=== PATIENT | female | born 1945 | race American Indian/Alaskan Native ===

== ENCOUNTER 2017-01-10 09:53 | Emergency (ER) | payer MEDICARE ==
[2017-01-10] MEDS ORDERED: LIDOCAINE VISCOUS 2% PO ONE (14:01)
[2017-01-10] MEDS ORDERED: HYDROGEN PEROXIDE TP ONE (14:01)
--- NOTE | 2017-01-10 14:05 | Emergency Department Report ---
HPI - General Chief Complaint: Earache Time Seen by Provider: 01/10/17 14:00 - HPI HPI: Patient is a 71-year-old female presents to ED complaining of right ear feeling clogged up 2 days. Patient states she used earwax removal drop with no relief. Patient states she has some decreased hearing in the ear to feeling of it being clogged. She denies fevers chills nausea vomiting abdominal pain headache blurry vision or any other problems. ED Past Medical Hx - Past Medical History Hx Hypertension: Yes - Social History Smoking Status: Never Smoker Substance Use Type: None ED Review of Systems ROS: Stated complaint: RT EAR PAIN Other details as noted in HPI Constitutional: denies: chills, fever Eyes: denies: eye pain, eye discharge, vision change ENT: denies: ear pain, throat pain Respiratory: denies: cough, shortness of breath, wheezing Cardiovascular: denies: chest pain, palpitations Endocrine: no symptoms reported Gastrointestinal: denies: abdominal pain, nausea, diarrhea Genitourinary: denies: urgency, dysuria, discharge Musculoskeletal: denies: back pain, joint swelling, arthralgia Skin: denies: rash, lesions Neurological: denies: headache, weakness, paresthesias Psychiatric: denies: anxiety, depression Hematological/Lymphatic: denies: easy bleeding, easy bruising Physical Exam - Physical Exam Vital Signs: Vital Signs 01/10/17 10:17 Temperature 98.5 F Pulse Rate 69 Respiratory 18 Rate Blood Pressure 149/93 O2 Sat by Pulse 100 Oximetry Physical Exam: GENERAL: Alert and oriented x3, no apparent distress, Normal Gait, atraumatic. HEAD: Head is normocephalic and a-traumatic. EYES: Extra ocular muscles are intact. Pupils are equal, round, and reactive to light and accommodation. EARS: symetrical, atraumatic, non tender, left ear canal clear, Right ear moderate cerumen impaction, Right TM not Visualized. Left tympanic membrance non inflamed. gross auditory nml bilaterally. MOUTH:Mouth is well hydrated and without lesions. Tonsils nonerythematous or swollen, Uvula midline, Tongue not elevated. Mucous membranes are moist. Posterior pharynx clear, no exudate or lesions. Patent airways. LUNGS: Symetrical with respiration, No wheezing, no rales or crackles, CTAB. HEART: S1, S2 present, regular rate and rhythm without murmur, no rubs, no gallops. Non tender to palpation SKIN: Warm and dry, No lesions, No ulceration or induration present. ED Course Vital Signs 01/10/17 10:17 Temperature 98.5 F Pulse Rate 69 Respiratory 18 Rate Blood Pressure 149/93 O2 Sat by Pulse 100 Oximetry ED Medical Decision Making - Medical Decision Making 71-year-old female presents with right sermon ear impaction ED course: 2 mL of peroxide was applied and right ear as such and immediately ear was flushed with 100 mL of normal saline Sermon ear wax expelled from ear. Patient tolerated procedure well Ear exam after irrigation and tympanic membrane visualized nonerythematous nonbulging Discussed patient follow up with primary care physician and can use earwax drops twice a day for sermon infection prevention Signs are stable patient is in no acute distress Critical care attestation.: If time is entered above; I have spent that time in minutes in the direct care of this critically ill patient, excluding procedure time. ED Disposition Clinical Impression: Cerumen impaction Qualifiers: Laterality: right Qualified Code(s): H61.21 - Impacted cerumen, right ear Disposition: DC-01 TO HOME OR SELFCARE Is pt being admited?: No Does the pt Need Aspirin: No Condition: Stable Instructions: Carbamide Peroxide (Into the ear), Cerumen Impaction (ED) Referrals: PRIMARY CAREMD [Primary Care Provider] - 3-5 Days PETE SAMS MD [Referring] - 3-5 Days Forms: Accompanied Note Time of Disposition: 14:40
[2017-01-10 14:58] VITALS: BP 165/90
== END 2017-01-10 14:57 | disposition home or self-care (01) ==
LOC: ED 09:53
DX: H61.21 Impacted cerumen, right ear (principal); I10 Essential (primary) hypertension

== ENCOUNTER 2017-01-19 06:25 | Emergency (ER) | payer MEDICARE ==
[2017-01-19 06:41] VITALS: BP 144/90
--- NOTE | 2017-01-19 07:45 | Emergency Department Report ---
ED Allergic Reaction HPI - General Chief complaint: Allergic Reaction Stated complaint: THROAT SWELLING Time Seen by Provider: 01/19/17 07:31 Source: patient Mode of arrival: Ambulatory Limitations: No Limitations - History of Present Illness Initial Comments: Patient stated that she had an IV contrast CT scan yesterday. She is complaining OF SWELLING IN HER NECK ON BOTH SIDES DENIED ANY DIFFICULTY SWALLOWING OR DIFFICULTY BREATHING. NO OTHER COMPLAINTS. MD Complaint: allergic reaction -: Last night Symptoms: denies: facial swelling, lip swelling, difficulty swallowing, difficulty breathing, orolingual swelling, hoarseness, dizziness, nausea, vomiting Severity: mild Treatment Prior to Arrival: benadryl Previous Allergy History: none - Related Data Previous Rx's Medication Instructions Recorded Last Taken Type Famotidine [Pepcid] 40 mg PO QHS #5 tablet 01/19/17 Unknown Rx Prednisone [predniSONE 10 mg 10 mg PO .TAPER #1 tab.ds.pk 01/19/17 Unknown Rx (6-Day Pack, 21 Tabs)] diphenhydrAMINE [Benadryl CAP] 25 mg PO Q8HR PRN #20 capsule 01/19/17 Unknown Rx Allergies Allergy/AdvReac Type Severity Reaction Status Date / Time sulfur [From Sulfur-8] Allergy Severe Swelling Verified 01/10/17 10:16 Latex, Natural Rubber AdvReac Severe Swelling Verified 01/10/17 10:16 ED Review of Systems ROS: Stated complaint: THROAT SWELLING Other details as noted in HPI Comment: All other systems reviewed and negative Constitutional: denies: chills, fever ENT: denies: throat pain Respiratory: denies: cough, shortness of breath, SOB with exertion, stridor Cardiovascular: denies: chest pain, palpitations Gastrointestinal: denies: abdominal pain, nausea, vomiting Skin: denies: rash, change in color Neurological: denies: headache, numbness ED Past Medical Hx - Past Medical History Previous Medical History?: Yes Hx Hypertension: Yes Additional medical history: Back Degenerative disk - Surgical History Past Surgical History?: No - Social History Smoking Status: Never Smoker Substance Use Type: Marijuana - Medications Home Medications: Home Medications Medication Instructions Recorded Confirmed Last Taken Type Famotidine [Pepcid] 40 mg PO QHS #5 tablet 01/19/17 Unknown Rx Prednisone [predniSONE 10 mg 10 mg PO .TAPER #1 tab.ds.pk 01/19/17 Unknown Rx (6-Day Pack, 21 Tabs)] diphenhydrAMINE [Benadryl CAP] 25 mg PO Q8HR PRN #20 capsule 01/19/17 Unknown Rx ED Physical Exam - General Limitations: No Limitations General appearance: alert, in no apparent distress - Head Head exam: Present: atraumatic, normocephalic, normal inspection - Eye Eye exam: Present: normal appearance Pupils: Present: normal accommodation - ENT ENT exam: Present: normal exam, normal orophraynx, mucous membranes moist - Expanded ENT Exam Expanded Throat exam: Positive: normal inspection. Negative: tonsillar erythema, tonsillomegaly, tonsillar exudate, R peritonsillar mass, L peritonsillar mass - Neck Neck exam: Present: normal inspection, full ROM, other (mild neck swelling bilaterally). Absent: tenderness, meningismus, lymphadenopathy, thyromegaly - Respiratory Respiratory exam: Present: normal lung sounds bilaterally. Absent: respiratory distress, wheezes, rales, rhonchi, stridor, chest wall tenderness, accessory muscle use, decreased breath sounds, prolonged expiratory - Cardiovascular Cardiovascular Exam: Present: regular rate, normal rhythm, normal heart sounds - GI/Abdominal GI/Abdominal exam: Present: soft. Absent: tenderness, guarding, rebound - Extremities Exam Extremities exam: Present: normal inspection - Back Exam Back exam: Present: normal inspection - Neurological Exam Neurological exam: Present: alert, oriented X3, CN II-XII intact ED Course Vital Signs 01/19/17 06:36 Temperature 97.9 F Pulse Rate 97 H Respiratory 16 Rate Blood Pressure 144/90 [Right] O2 Sat by Pulse 98 Oximetry ED Medical Decision Making - Medical Decision Making Patient has a mild allergic reaction possibly to the dye from the IV contrast there is no evidence of angioedema nor throat swelling noted no swelling. No evidence of respiratory distress patient will be discharged home after his Solu- Medrol 125 mg and advised to follow-up with her primary care physician and to come to the ER if her symptoms get worse. Critical care attestation.: If time is entered above; I have spent that time in minutes in the direct care of this critically ill patient, excluding procedure time. ED Disposition Clinical Impression: Allergic reaction to contrast dye Disposition: DC-01 TO HOME OR SELFCARE Is pt being admited?: No Does the pt Need Aspirin: No Condition: Stable Instructions: Allergies (ED) Referrals: PRIMARY CARE, [Primary Care Provider] - 3-5 Days Time of Disposition: 07:50
== END 2017-01-19 08:24 | disposition home or self-care (01) ==
LOC: ED 06:25
DX: T50.8X5A Adverse effect of diagnostic agents, initial encounter (principal); Y92.9 Unspecified place or not applicable; I10 Essential (primary) hypertension; F12.10 Cannabis abuse, uncomplicated
CPT/HCPCS: 96372; 99281; J2930

== ENCOUNTER 2017-02-01 21:35 | Emergency (ER) | payer MEDICARE ==
[2017-02-01 23:40] LABS: Basophils % (Auto) 0.6 % (0.0-1.8); Eosinophils % (Auto) 0.5 % (0.0-4.3); Hematocrit 44.6 % (30.3-42.9); Hemoglobin 14.7 gm/dl (10.1-14.3); Mean Corpuscular HGB Conc 33 % (30-34); Mean Corpuscular Hemoglobin 30 pg (28-32); Mean Corpuscular Volume 92 fl (79-97); Platelet Count 252 K/mm3 (140-440); Red Blood Count 4.85 M/mm3 (3.65-5.03); Red Cell Distribution Width 14.8 % (13.2-15.2); White Blood Count 10.6 K/mm3 (4.5-11.0)
[2017-02-01] MEDS ORDERED: MORPHINE IV ONE (23:41)
[2017-02-01] MEDS ORDERED: NACL 0.9% 500 ML 500 ML IV ONE (23:41)
[2017-02-01] MEDS ORDERED: ZOFRAN IV ONE (23:41)
[2017-02-02 00:08] LABS: Alanine Aminotransferase 10 units/L (7-56); Albumin 4.7 g/dL (3.9-5); Albumin/Globulin Ratio 1.3 %; Alkaline Phosphatase 116 units/L (35-129); Anion Gap 21 mmol/L; BUN/Creatinine Ratio 15.71; Blood Urea Nitrogen 11 mg/dL (7-17); Calcium 9.8 mg/dL (8.4-10.2); Carbon Dioxide 29 mmol/L (22-30); Chloride 100.1 mmol/L (98-107); Creatine Kinase 69 units/L (30-135); Creatine Kinase MB 1.2 ng/mL (0.0-4.0); Glucose 107 mg/dL (65-100); Lipase 50 units/L (13-60); Potassium 3.5 mmol/L (3.6-5.0); Sodium 147 mmol/L (137-145); Total Protein 8.2 g/dL (6.3-8.2)
--- NOTE | 2017-02-02 00:48 | Emergency Department Report ---
ED Abdominal Pain HPI - General Chief Complaint: Abdominal Pain Stated Complaint: CHEST PAIN Time Seen by Provider: 02/01/17 23:20 Source: patient, EMS Mode of arrival: Stretcher Limitations: No Limitations - History of Present Illness Initial Comments: 71-year-old female with a past medical history hypertension, acid reflux, degenerative disc disease, and previous surgical history of hysterectomy and cervical disc surgery presents to the hospital complaining of sudden onset of right upper quadrant and epigastric pain at 4:30 PM. Patient states it feels like gas but would not go away. Patient takes a PPI daily but no longer has any gas pills. She took baking soda which may pain worse instead of better. Pain has been constant, worse with palpation, no alleviating factors. Pain rated 9/10 intensity. Positive nausea without vomiting. Patient also denies melena, hematochezia, fever, shortness of breath, or diaphoresis. Severity scale (0 -10): 5 - Related Data Home Medications Medication Instructions Recorded Confirmed Last Taken Amlodipine Besylate 10 mg PO DAILY 02/01/17 02/01/17 Unknown AtorvaSTATin 20 mg PO DAILY 02/01/17 02/01/17 Unknown Metoprolol 50 mg PO DAILY 02/01/17 02/01/17 Unknown Pantoprazole Sodium 40 mg PO DAILY 02/01/17 02/01/17 Unknown Previous Rx's Medication Instructions Recorded Last Taken Type HYDROcodone/APAP 5-325 [[employer] 1 each PO Q6HR PRN #20 tablet 02/02/17 Unknown Rx 5/325] Levofloxacin [Levaquin] 750 mg PO QDAY #1 tablet 02/02/17 Unknown Rx Promethazine [Phenergan TAB] 25 mg PO Q6HR PRN #30 tab 02/02/17 Unknown Rx Allergies Allergy/AdvReac Type Severity Reaction Status Date / Time sulfur [From Sulfur-8] Allergy Severe Swelling Verified 01/10/17 10:16 Latex, Natural Rubber AdvReac Severe Swelling Verified 01/10/17 10:16 ED Review of Systems ROS: Stated complaint: CHEST PAIN Other details as noted in HPI Comment: All other systems reviewed and negative Other: Constitutional: No fevers chills Eyes: No eye pain visual changes ENT: No ear pain or throat pain Neck: Denies pain Respiratory: Denies cough wheezing shortness of breath Cardiovascular: Denies chest pain, palpitations, syncope GI: Per HPI : Denies dysuria Musculoskeletal: Denies back pain, joint swelling Skin: Denies rash, lesions, erythema Neurologic: Denies headache, numbness, weakness Psychiatric: Denies suicidal ideation, hallucinations ED Past Medical Hx - Past Medical History Previous Medical History?: Yes Hx Hypertension: Yes Additional medical history: Back Degenerative disk, acid reflux - Surgical History Past Surgical History?: Yes Additional Surgical History: Cervical disc surgery. Hysterectomy - Social History Smoking Status: Current Some Day Smoker Substance Use Type: None - Medications Home Medications: Home Medications Medication Instructions Recorded Confirmed Last Taken Type Amlodipine Besylate 10 mg PO DAILY 02/01/17 02/01/17 Unknown History AtorvaSTATin 20 mg PO DAILY 02/01/17 02/01/17 Unknown History Metoprolol 50 mg PO DAILY 02/01/17 02/01/17 Unknown History Pantoprazole Sodium 40 mg PO DAILY 02/01/17 02/01/17 Unknown History HYDROcodone/APAP 5-325 [[employer] 1 each PO Q6HR PRN #20 tablet 02/02/17 Unknown Rx 5/325] Levofloxacin [Levaquin] 750 mg PO QDAY #1 tablet 02/02/17 Unknown Rx Promethazine [Phenergan TAB] 25 mg PO Q6HR PRN #30 tab 02/02/17 Unknown Rx ED Physical Exam - General Limitations: No Limitations - Other Other exam information: General: No limitations, patient is alert in no acute distress Head exam: Atraumatic, normocephalic Eyes exam: Normal appearance, pupils equal reactive to light, extraocular movements intact ENT: Moist mucous membrane, normal oropharynx Neck exam: Normal inspection, full range of motion, no meningismus nontender Respiratory exam: Clear to auscultation bilateral, no wheezes, rales, crackles Cardiovascular: Normal rate and rhythm, normal heart sounds Abdomen: Soft, nondistended, right upper quadrant and epigastric tenderness, with normal bowel sounds, no rebound, or guarding Extremity: Full range of motion normal inspection no deformity Back: Normal Inspection, full range of motion, no tenderness Neurologic: Alert, oriented x3, cranial nerves intact, no motor or sensory deficit Psychiatric: normal affect, normal mood Skin: Warm, dry, intact ED Course Vital Signs 02/01/17 02/01/17 02/01/17 21:54 22:00 22:02 Temperature 98.3 F Pulse Rate 62 66 62 Respiratory 24 14 16 Rate Blood Pressure 148/85 Blood Pressure 150/76 [Left] O2 Sat by Pulse 100 99 99 Oximetry 02/01/17 02/01/17 02/01/17 22:14 22:20 22:40 Temperature Pulse Rate 64 68 Respiratory 16 16 9 L Rate Blood Pressure 144/76 145/79 Blood Pressure [Left] O2 Sat by Pulse 99 100 98 Oximetry 02/01/17 02/01/17 02/01/17 23:00 23:20 23:40 Temperature Pulse Rate 71 66 63 Respiratory 13 13 10 L Rate Blood Pressure 136/85 152/80 128/74 Blood Pressure [Left] O2 Sat by Pulse 99 99 100 Oximetry 02/01/17 02/01/17 02/02/17 23:49 23:54 00:00 Temperature Pulse Rate 67 63 Respiratory 16 7 L 14 Rate Blood Pressure 126/82 130/76 Blood Pressure [Left] O2 Sat by Pulse 98 100 Oximetry 02/02/17 02/02/17 02/02/17 00:30 01:00 01:30 Temperature Pulse Rate 66 61 59 L Respiratory 18 18 19 Rate Blood Pressure 143/75 130/66 122/70 Blood Pressure [Left] O2 Sat by Pulse 97 97 96 Oximetry 02/02/17 02/02/17 02:12 02:30 Temperature Pulse Rate 62 60 Respiratory 9 L 17 Rate Blood Pressure 127/65 104/52 Blood Pressure [Left] O2 Sat by Pulse 98 97 Oximetry - Reevaluation(s) Reevaluation #1: 02/02/17 03:08 Patient states she feels much better after pain medication and nausea medication , and IV fluids. First dose of Levaquin and by mouth potassium also given - Consultations Consultation #1: 02/02/17 02:[address] Delgadillo, patient is borderline. Ultrasound shows signs of cholecystitis but clinically patient lacks fever, leukocytosis, or LFT elevation. Disposition depends on current symptoms. If patient's symptoms controlled patient may be seen in the office otherwise patient may be admitted ED Medical Decision Making - Lab Data Result diagrams: 02/01/17 23:24 02/01/17 23:24 Lab Results 02/01/17 02/01/17 Range/Units 23:24 23:24 WBC 10.6 (4.5-11.0) K/mm3 RBC 4.85 (3.65-5.03) M/mm3 Hgb 14.7 H (10.1-14.3) gm/dl Hct 44.6 H (30.3-42.9) % MCV 92 (79-97) fl MCH 30 (28-32) pg MCHC 33 (30-34) % RDW 14.8 (13.2-15.2) % Plt Count 252 (140-440) K/mm3 Lymph % (Auto) 26.2 (13.4-35.0) % Harmon % (Auto) 7.8 H (0.0-7.3) % Eos % (Auto) 0.5 (0.0-4.3) % Baso % (Auto) 0.6 (0.0-1.8) % Lymph # 2.8 (1.2-5.4) K/mm3 Harmon # 0.8 (0.0-0.8) K/mm3 Eos # 0.1 (0.0-0.4) K/mm3 Baso # 0.1 (0.0-0.1) K/mm3 Seg Neutrophils % 64.9 (40.0-70.0) % Seg Neutrophils # 6.9 (1.8-7.7) K/mm3 Sodium 147 H (137-145) mmol/L Potassium 3.5 L (3.6-5.0) mmol/L Chloride 100.1 (98-107) mmol/L Carbon Dioxide 29 (22-30) mmol/L Anion Gap 21 mmol/L BUN 11 (7-17) mg/dL Creatinine 0.7 (0.7-1.2) mg/dL Estimated GFR > 60 ml/min BUN/Creatinine Ratio 15.71 % Glucose 107 H (65-100) mg/dL Calcium 9.8 (8.4-10.2) mg/dL Total Bilirubin 0.70 (0.1-1.2) mg/dL AST 15 (5-40) units/L ALT 10 (7-56) units/L Alkaline Phosphatase 116 (35-129) units/L Total Creatine Kinase 69 (30-135) units/L CK-MB (CK-2) 1.2 (0.0-4.0) ng/mL CK-MB (CK-2) Rel Index 1.7 (0-4) Troponin T < 0.010 (0.00-0.029) ng/mL Total Protein 8.2 (6.3-8.2) g/dL Albumin 4.7 (3.9-5) g/dL Albumin/Globulin Ratio 1.3 % Lipase 50 (13-60) units/L - EKG Data -: EKG Interpreted by Me (sinus rate 71 anterior T-wave inversions no STEMI) - EKG Data When compared to previous EKG there are: no significant change (compared to ) - Radiology Data Radiology results: report reviewed (transvaginal/pelvic ultrasound: A distended gallbladder lumen with sludge formation and a small amount of stones. Minimum cholecystic fluid. Slight dilatation of common bile duct of 7 mm. cholecystitis is possible) - Medical Decision Making Discussed possibility of admission with patient. She states she feels well enough to go home. Patient be discharged on antibiotics, nausea medication, and pain medication. Follow up on Sunday with the surgeon suggested. Patient given instructions to return to the ER if symptoms worsen prior to swallow - Differential Diagnosis gastritis, GERD, dyspepsia, cholelithiasis/cystitis, pancreatitis, [place] Critical Care Time: No Critical care attestation.: If time is entered above; I have spent that time in minutes in the direct care of this critically ill patient, excluding procedure time. ED Disposition Clinical Impression: Cholecystitis Disposition: - TO HOME OR SELFCARE Is pt being admited?: No Does the pt Need Aspirin: No Condition: Stable Instructions: Cholecystitis (ED) Additional Instructions: Take the medication as prescribed. Your ultrasound shows some inflammation of your gallbladder and stones in the gallbladder. He will likely need surgery to remove her gallbladder. It is very important that you follow-up with the surgeon as soon as possible. You having offered admission but preferred to go home at this time. If any of your symptoms worsen as indicated by her discharge instructions, please don't hesitate to return to the ER for further treatment. Prescriptions: HYDROcodone/APAP 5-325 [[employer] 5/325] 1 each PO Q6HR PRN #20 tablet PRN Reason: Pain Levofloxacin [Levaquin] 750 mg PO QDAY #1 tablet Promethazine [Phenergan TAB] 25 mg PO Q6HR PRN #30 tab PRN Reason: Nausea Referrals: YAIR LONG MD [Staff Physician] - 02/05/17 Time of Disposition: 03:05
--- NOTE | 2017-02-02 02:38 | Ultrasound Report ---
FINAL REPORT PROCEDURE: US ABDOMEN COMPLETE TECHNIQUE: Real-time sonography in multiple planes of the abdomen was performed with image documentation. CPT 44177 HISTORY: ruq pain, epigastric pain COMPARISON: No prior studies are available for comparison. FINDINGS: Liver: Liver is fatty infiltrated. Gallbladder: Gallbladder is distended. There internal echo foci within the gallbladder lumen. Some layering of material consistent with sludge formation. Slight pericholecystic fluid.. Intrahepatic bile ducts: Normal caliber . Extrahepatic bile ducts: There is slight dilatation of common bile duct measuring 7 millimeters. Pancreas: Normal as visualized with suboptimal depiction of the pancreatic tail. Aorta: Visualized portions appear normal. IVC: Visualized portions appear normal. RIGHT kidney: Normal echotexture. No focal renal mass, calculus, or hydronephrosis. Length: 8.7cm. LEFT kidney: Normal echotexture. No focal renal mass, calculus, or hydronephrosis . Length: 10.7cm. Spleen: The visualized portions are normal. Intraperitoneal fluid: None . Other: None . IMPRESSION: Distended gallbladder lumen with sludge formation and small stones. Minimal pericholecystic fluid. Slightly dilated common bile duct at 7 millimeters. Cholecystitis is possible. .
[2017-02-02] MEDS ORDERED: LEVAQUIN PO ONE (02:52)
[2017-02-02] MEDS ORDERED: K-DUR PO ONE (02:58)
[2017-02-02 05:58] VITALS: BP 104/52
== END 2017-02-02 05:57 | disposition home or self-care (01) ==
LOC: ED 21:35
DX: K81.9 Cholecystitis, unspecified (principal); Z88.2 Allergy status to sulfonamides; Z91.040 Latex allergy status; I10 Essential (primary) hypertension; K21.9 Gastro-esophageal reflux disease without esophagitis; F17.200 Nicotine dependence, unspecified, uncomplicated
CPT/HCPCS: 36415; 76700; 80053; 82550; 82553; 83690; 84484; 85025; 93005; 93010; 96374; 96375; 99284; J2270; J2405; J7040

== ENCOUNTER 2020-10-21 08:53 | Observation (INO) | payer MEDICARE ==
--- NOTE | 2020-10-21 09:38 | Emergency Department Report ---
ED Chest Pain HPI - General Chief Complaint: Chest Pain Stated Complaint: CHEST PAIN Time Seen by Provider: 10/21/20 09:22 Source: patient, EMS Mode of arrival: Stretcher Limitations: No Limitations - History of Present Illness Initial Comments: This is a 74-year-old -[place] female presents to the emergency department via EMS from the office of her PCP at [facility], Dr Childress. Patient says that she has been having a 6-day history of upper abdominal pain that is associated with some nausea without vomiting, diarrhea, and shortness of breath. The pain is currently 6 out of 10 in intensity and is intermittent. She says that walking or exertion makes the pain worse. No known alleviating factors. She says that she took some type of [id number]-fqu-[id number] medication for her stomach that gave her some transient relief. Patient was sent in with paperwork from the PCP saying that there is a history of COPD, mood disorder, dementia, GERD, hyperlipidemia, essential hypertension, left renal mass. There is also an EKG that shows some T wave inversions to the anterior leads that appears new for this patient. There is a note from the PCP to "please rule out ACS." The patient also says that she has a history of previous cholecystectomy. - Related Data Home Medications Medication Instructions Recorded Confirmed Last Taken Albuterol Sulfate [Albuterol 0.63% 0.63 mg IH TID PRN 10/21/20 10/21/20 Unknown NEBS] AtorvaSTATin [Lipitor] 20 mg PO QHS 10/21/20 10/21/20 Unknown Latanoprost 0.005% [Xalatan 0.005%] 1 drop OP QPM 10/21/20 10/21/20 Unknown Metoprolol [Lopressor TAB] 50 mg PO BID 10/21/20 10/21/20 Unknown Pantoprazole Sodium 40 mg PO QDAY 10/21/20 10/21/20 Unknown amLODIPine [Norvasc] 10 mg PO DAILY 10/21/20 10/21/20 Unknown Allergies Allergy/AdvReac Type Severity Reaction Status Date / Time sulfur [From Sulfur-8] Allergy Severe Swelling Verified 01/10/17 10:16 Latex, Natural Rubber AdvReac Severe Swelling Verified 01/10/17 10:16 Heart Score - HEART Score History: Slightly suspicious EKG: Non-specific Age: > 65 Risk factors: > 3 risk factors or hx of atherosclerotic disease (Tobacco, HTN, HLD) Troponin: < normal limit HEART Score: 5 - EKG Read Time Time EKG Completed: 09:48 EKG Read Time: 09:48 ED Review of Systems ROS: Stated complaint: CHEST PAIN Other details as noted in HPI Comment: All other systems reviewed and negative Constitutional: denies: chills, fever Eyes: denies: eye pain, vision change ENT: denies: ear pain, throat pain Respiratory: shortness of breath. denies: cough Cardiovascular: chest pain (Questionable), palpitations ("Fluttering") Gastrointestinal: abdominal pain, nausea, diarrhea. denies: vomiting Genitourinary: denies: dysuria, discharge Musculoskeletal: denies: joint swelling, arthralgia Skin: denies: rash, lesions Neurological: denies: headache, numbness, paresthesias ED Past Medical Hx - Past Medical History Hx Hypertension: Yes Hx GERD: Yes Additional medical history: Back Degenerative disk, acid reflux - Surgical History Additional Surgical History: Cervical disc surgery. Hysterectomy - Social History Smoking Status: Current Every Day Smoker - Medications Home Medications: Home Medications Medication Instructions Recorded Confirmed Last Taken Type Albuterol Sulfate [Albuterol 0.63% 0.63 mg IH TID PRN 10/21/20 10/21/20 Unknown History NEBS] AtorvaSTATin [Lipitor] 20 mg PO QHS 10/21/20 10/21/20 Unknown History Latanoprost 0.005% [Xalatan 0.005%] 1 drop OP QPM 10/21/20 10/21/20 Unknown History Metoprolol [Lopressor TAB] 50 mg PO BID 10/21/20 10/21/20 Unknown History Pantoprazole Sodium 40 mg PO QDAY 10/21/20 10/21/20 Unknown History amLODIPine [Norvasc] 10 mg PO DAILY 10/21/20 10/21/20 Unknown History ED Physical Exam - General Limitations: No Limitations - Other Other exam information: GENERAL: The patient is well-developed well-nourished. HENT: Normocephalic. Atraumatic. Patient has moist mucous membranes. EYES: Extraocular motions are intact. NECK: Supple. Trachea is midline. CHEST/LUNGS: Clear to auscultation. There is no respiratory distress noted. HEART/CARDIOVASCULAR: Regular. There is no tachycardia. There is no murmur. ABDOMEN: Abdomen is soft. There is some epigastric tenderness to palpation. No guarding. Patient has normal bowel sounds. There is no abdominal distention. SKIN: Skin is warm and dry. NEURO: The patient is awake, alert, and oriented. The patient is cooperative. The patient has no focal neurologic deficits. Normal speech. MUSCULOSKELETAL: There is no tenderness or deformity. There is no limitation range of motion. ED Course Vital Signs 10/21/20 10/21/20 10/21/20 09:22 09:30 09:32 Temperature 97.7 F Pulse Rate 70 64 Respiratory 15 13 12 Rate Blood Pressure Blood Pressure 126/71 [Right] O2 Sat by Pulse 100 Oximetry 10/21/20 10/21/20 09:46 10:15 Temperature Pulse Rate 65 67 Respiratory 13 13 Rate Blood Pressure 126/71 135/71 Blood Pressure [Right] O2 Sat by Pulse 100 100 Oximetry JEB score - Jeb Score Age > 65: (1) Yes Aspirin use within the Past 7 Days: (0) No 3 or more CAD Risk Factors: (1) Yes 2 or more Angina events in past 24 hrs: (1) Yes Known CAD with more than 50% Stenosis: (0) No Elevated Cardiac Markers: (0) No ST Deviation Greater than 0.5mm: (0) No JEB Score: 3 ED Medical Decision Making - Lab Data Result diagrams: 10/21/20 10:01 10/21/20 10:01 - EKG Data -: EKG Interpreted by Oh EKG shows normal: sinus rhythm, axis, intervals, QRS complexes, ST-T waves (T wave inversions to the anterior leads) Rate: normal - EKG Data When compared to previous EKG there are: no significant change Interpretation: unchanged when compared t (02/02/17) - Radiology Data Radiology results: report reviewed, image reviewed interpreted by me: Chest x-ray does not show any acute process. There are no pleural effusions, obvious pneumonia and there is no pneumothorax. No significant cardiomegaly. Abdominal x-ray shows nonspecific nonobstructive bowel gas. No free air. CTA CHEST WITH CONTRAST INDICATION : Chest pain, elevated d-dimer. TECHNIQUE: Axial imaging performed through the chest, with contrast bolus timing set to maximize opacification of the pulmonary arteries. Sagittal and coronal reformatted images. 3-plane MIP reformatted images were obtained. All CT scans at this location are performed using CT dose reduction for ALARA by means of automated exposure control. 100 mL of intravenous contrast administered. COMPARISON: None FINDINGS: Bolus: Contrast bolus timing is adequate. PTE: No filling defect is present to suggest PTE. Mediastinum: Normal heart and pericardium. The aorta is mildly ectatic with scattered plaques. The ascending aorta measures 3.5 cm in diameter. No pathologic mediastinal adenopathy. Lungs: Lungs are clear. Mild to moderate centrilobular emphysematous changes are identified in the upper lobes. Bones: Degenerative changes in the spine with nothing acute. Upper abdomen: Limited imaging of the upper abdomen shows nothing acute. IMPRESSION: No evidence for pulmonary embolus. No acute process. Emphysematous changes in the upper lung zones. CT ABDOMEN AND PELVIS WITH CONTRAST HISTORY: Abdominal pain for 3 days COMPARISON: None. TECHNIQUE: Axial CT images were obtained through the abdomen and pelvis after 100 cc of IV contrast. Sagittal and coronal reformatted images. All CT scans at this location are performed using CT dose reduction for ALARA by means of automated exposure control. FINDINGS: CT ABDOMEN: Liver: No significant abnormality. Biliary: Gallbladder is surgically absent. Spleen: No significant abnormality. Unenlarged. Pancreas: No significant abnormality. Adrenals: The right adrenal gland is normal. There is a 1.2 cm intermediate density nodule in the left adrenal gland which probably represents an adrenal adenoma. Kidneys: A 3.7 cm simple cyst is noted in the left kidney. The kidneys and renal collecting systems are unremarkable otherwise. Lymphatics: No lymphadenopathy. Vasculature: Mild diffuse aortic and common iliac calcifications. No stenosis or aneurysm. Bowel/Peritoneum: No significant abnormality. No free air. No free fluid. Normal appendix. CT PELVIS: : Hysterectomy. The bladder and adnexal regions are unremarkable. Osseous Structures: Mild lumbar spondylosis. No acute osseous findings. Additional Findings: None IMPRESSION: No acute process is identified. Probable left adrenal adenoma as described. 3.7 cm left renal cyst. Hysterectomy and cholecystectomy. - Medical Decision Making This patient presents to the emergency department with epigastric abdominal pain that radiates into the chest that has been going on since last night. EKG did not have any morphology consistent with ST elevation myocardial infarction. Chest x-ray does not show any pneumonia, pleural effusions, pneumothorax, or any other acute process. Abdominal x-ray does not show any free air and there is nonobstructive nonspecific bowel gas seen. Labs have been mostly unremarkable thus far including CBC, metabolic panel, negative troponin x1. She did have a slightly elevated D-dimer level. CT angiography of the chest, as well as a CT of the abdomen and pelvis with IV contrast, were completed that did not show any acute process or etiology of the patient's discomfort. Her PCP had concern for the patient's chest pain and to rule out ACS. The patient has a moderate heart score of 5 and a moderate JEB score. For these reasons the patient will be admitted to the hospital for further evaluation and treatment and was accepted for admission by the hospitalist, Dr. Bauer. Critical Care Time: No Critical care attestation.: If time is entered above; I have spent that time in minutes in the direct care of this critically ill patient, excluding procedure time. ED Disposition Clinical Impression: Acute chest pain, Epigastric pain, Chest pain, rule out acute myocardial infarction Disposition: OP ADMIT IP TO THIS HOSP Is pt being admited?: Yes Condition: Fair Time of Disposition: 12:42
--- NOTE | 2020-10-21 10:09 | XRay Report ---
Chest and abdominal series. HISTORY: Epigastric pain. Chest one view: Heart size is normal. The lungs are clear. Two-view abdomen: Gas is scattered throughout the abdomen in a nonobstructive fashion. Negative for f ree air or suspicious calcification. Status post previous cholecystectomy. Colonic stool is moderate. Signer Name: Bassem Perez MD Signed: 10/21/2020 10:04 AM Workstation Name: [id number]
[2020-10-21 10:49] LABS: Basophils # (Auto) 0.1 K/mm3 (0.0-0.1); Basophils % (Auto) 2.1 % (0.0-1.8); Eosinophils % (Auto) 0.6 % (0.0-4.3); Hematocrit 40.2 % (30.3-42.9); Hemoglobin 13.7 gm/dl (10.1-14.3); Lymphocytes # (Auto) 1.8 K/mm3 (1.2-5.4); Lymphocytes % (Auto) 26.6 % (13.4-35.0); Mean Corpuscular HGB Conc 34 % (30-34); Mean Corpuscular Volume 94 fl (79-97); Monocytes # (Auto) 0.5 K/mm3 (0.0-0.8); Monocytes % (Auto) 7.8 % (0.0-7.3); Platelet Count 255 K/mm3 (140-440); Red Blood Count 4.29 M/mm3 (3.65-5.03); Red Cell Distribution Width 14.1 % (13.2-15.2)
[2020-10-21 11:01] LABS: INR 0.93 (0.87-1.13)
[2020-10-21 11:02] LABS: Partial Thromboplastin Time 26.4 Sec. (24.2-36.6)
[2020-10-21 11:06] LABS: Alanine Aminotransferase 7 units/L (7-56); Albumin 3.9 g/dL (3.9-5); Blood Urea Nitrogen 10 mg/dL (7-17); Calcium 8.8 mg/dL (8.4-10.2); Hemolysis Index 34
[2020-10-21 11:07] LABS: BUN/Creatinine Ratio 14
--- NOTE | 2020-10-21 12:33 | Cat Scan Report ---
CTA CHEST WITH CONTRAST INDICATION : Chest pain, elevated d-dimer. TECHNIQUE: Axial imaging performed through the chest, with contrast bolus timing set to maximize opa cification of the pulmonary arteries. Sagittal and coronal reformatted images. 3-plane MIP reformatte d images were obtained. All CT scans at this location are performed using CT dose reduction for ALAR A by means of automated exposure control. 100 mL of intravenous contrast administered. COMPARISON: None FINDINGS: Bolus: Contrast bolus timing is adequate. PTE: No filling defect is present to suggest PTE. Mediastinum: Normal heart and pericardium. The aorta is mildly ectatic with scattered plaques. The a scending aorta measures 3.5 cm in diameter. No pathologic mediastinal adenopathy. Lungs: Lungs are clear. Mild to moderate centrilobular emphysematous changes are identified in the u pper lobes. Bones: Degenerative changes in the spine with nothing acute. Upper abdomen: Limited imaging of the upper abdomen shows nothing acute. IMPRESSION: No evidence for pulmonary embolus. No acute process. Emphysematous changes in the upper lung zones. CT ABDOMEN AND PELVIS WITH CONTRAST HISTORY: Abdominal pain for 3 days COMPARISON: None. TECHNIQUE: Axial CT images were obtained through the abdomen and pelvis after 100 cc of IV contrast. Sagittal and coronal reformatted images. All CT scans at this location are performed using CT dose re duction for ALARA by means of automated exposure control. FINDINGS: CT ABDOMEN: Liver: No significant abnormality. Biliary: Gallbladder is surgically absent. Spleen: No significant abnormality. Unenlarged. Pancreas: No significant abnormality. Adrenals: The right adrenal gland is normal. There is a 1.2 cm intermediate density nodule in the lef t adrenal gland which probably represents an adrenal adenoma. Kidneys: A 3.7 cm simple cyst is noted in the left kidney. The kidneys and renal collecting systems a re unremarkable otherwise. Lymphatics: No lymphadenopathy. Vasculature: Mild diffuse aortic and common iliac calcifications. No stenosis or aneurysm. Bowel/Peritoneum: No significant abnormality. No free air. No free fluid. Normal appendix. CT PELVIS: : Hysterectomy. The bladder and adnexal regions are unremarkable. Osseous Structures: Mild lumbar spondylosis. No acute osseous findings. Additional Findings: None IMPRESSION: No acute process is identified. Probable left adrenal adenoma as described. 3.7 cm left renal cyst. Hysterectomy and cholecystectomy. Signer Name: Po Collazo Jr, MD Signed: 10/21/2020 12:28 PM Workstation Name: [id number]
[2020-10-21 15:02] VITALS: BP 137/71
--- NOTE | 2020-10-21 18:00 | Electrocardiograph Report ---
[facility] Test Date: 2020-10-21 Test Time: 09:41:08 Pat Name: NATHANAEL DENNEY Department: Room: A487 Gender: F Event Mgr: GERMAIN : 1945 Requested By: LANCE THOMAS Order Number: [id number] Reading MD: Valdo Saucedo Measurements Intervals [place] Rate: 69 P: 67 OR: 162 QRS: 60 QRSD: 116 T: 56 QT: 451 QTc: 484 Interpretive Statements Sinus rhythm Nonspecific intraventricular conduction delay Nonspecific T abnormalities, anterior leads No previous ECG available for comparison Electronically Signed On 10-21-2020 18:00:30 EDT by Valdo Saucedo
== END 2020-10-21 15:00 | disposition left against medical advice (07) ==
LOC: ED 08:53 → 4A 12:42
PROVIDERS: ADMIT Internal Medicine; ATTEND Internal Medicine
DX: R07.89 Other chest pain (principal); R10.13 Epigastric pain; I10 Essential (primary) hypertension; K21.9 Gastro-esophageal reflux disease without esophagitis; M51.36 Other intervertebral disc degeneration, lumbar region; Z98.890 Other specified postprocedural states; Z90.710 Acquired absence of both cervix and uterus
CPT/HCPCS: 36415; 71275; 74022; 74177; 80053; 83690; 84484; 85025; 85379; 85610; 85730; 93005; 99285; G0378; Q9967

== ENCOUNTER 2021-03-19 17:57 | Observation (INO) | payer MEDICARE ==
--- NOTE | 2021-03-19 18:20 | Emergency Department Report ---
ED Shortness of Breath HPI - General Chief Complaint: Chest Pain Stated Complaint: CHEST PAIN Time Seen by Provider: 03/19/21 18:08 Source: patient Mode of arrival: Ambulatory Limitations: No Limitations - History of Present Illness Initial Comments: Ms. Rasmussen is a 75-year-old female with history of COPD, hypertension and dementia. Patient presented to the ER complaining of shortness of breath and difficulty in breathing for the last 5 days. Patient stated that her symptoms started after she received a flu shot at her primary care physician. Patient stated that the next day she started to have shortness of breath and difficulty breathing. Patient denied any fever or chills. She denied cough. No nausea or vomiting. Patient is complaining of pain around her scar wound from her previous cholecystectomy in 2017. MD Complaint: shortness of breath, chest pain -: days(s) (5) Severity: moderate Consistency: constant Known History Of: COPD Treatments Prior to Arrival: none - Related Data Home Medications Medication Instructions Recorded Confirmed Last Taken Albuterol Sulfate [Albuterol 0.63% 0.63 mg IH TID PRN 10/21/20 10/21/20 Unknown NEBS] AtorvaSTATin [Lipitor] 20 mg PO QHS 10/21/20 10/21/20 Unknown Latanoprost 0.005% [Xalatan 0.005%] 1 drop OP QPM 10/21/20 10/21/20 Unknown Metoprolol [Lopressor TAB] 50 mg PO BID 10/21/20 10/21/20 Unknown Pantoprazole Sodium 40 mg PO QDAY 10/21/20 10/21/20 Unknown amLODIPine [Norvasc] 10 mg PO DAILY 10/21/20 10/21/20 Unknown Allergies Allergy/AdvReac Type Severity Reaction Status Date / Time sulfur [From Sulfur-8] Allergy Severe Swelling Verified 01/10/17 10:16 shellfish derived Allergy Anaphylaxis Verified 03/19/21 18:21 Latex, Natural Rubber AdvReac Severe Swelling Verified 01/10/17 10:16 ED Review of Systems ROS: Stated complaint: CHEST PAIN Other details as noted in HPI Comment: All other systems reviewed and negative Constitutional: denies: chills, fever Respiratory: cough, shortness of breath, SOB with exertion, SOB at rest. denies: wheezing Cardiovascular: denies: chest pain, palpitations Gastrointestinal: denies: abdominal pain, nausea, vomiting, diarrhea, consti pation ([place] is), hematemesis Musculoskeletal: denies: back pain Neurological: denies: headache, weakness, numbness, paresthesias, confusion ED Past Medical Hx - Past Medical History Hx Hypertension: Yes Hx GERD: Yes Additional medical history: Back Degenerative disk, acid reflux - Surgical History Additional Surgical History: Cervical disc surgery. Hysterectomy - Social History Smoking Status: Current Every Day Smoker - Medications Home Medications: Home Medications Medication Instructions Recorded Confirmed Last Taken Type Albuterol Sulfate [Albuterol 0.63% 0.63 mg IH TID PRN 10/21/20 10/21/20 Unknown History NEBS] AtorvaSTATin [Lipitor] 20 mg PO QHS 10/21/20 10/21/20 Unknown History Latanoprost 0.005% [Xalatan 0.005%] 1 drop OP QPM 10/21/20 10/21/20 Unknown History Metoprolol [Lopressor TAB] 50 mg PO BID 10/21/20 10/21/20 Unknown History Pantoprazole Sodium 40 mg PO QDAY 10/21/20 10/21/20 Unknown History amLODIPine [Norvasc] 10 mg PO DAILY 10/21/20 10/21/20 Unknown History ED Physical Exam - General Limitations: No Limitations General appearance: alert, in distress - Head Head exam: Present: atraumatic, normocephalic, normal inspection - Eye Eye exam: Present: normal appearance - ENT ENT exam: Present: normal exam, normal orophraynx, mucous membranes moist - Neck Neck exam: Present: normal inspection, full ROM. Absent: tenderness, meningismus - Respiratory Respiratory exam: Present: normal lung sounds bilaterally - Cardiovascular Cardiovascular Exam: Present: regular rate, normal rhythm, normal heart sounds - GI/Abdominal GI/Abdominal exam: Present: soft, normal bowel sounds. Absent: distended, tenderness, guarding, rebound, rigid, organomegaly, mass, bruit, pulsatile mass, hernia - Extremities Exam Extremities exam: Present: normal inspection, full ROM, normal capillary refill. Absent: tenderness, pedal edema, joint swelling, calf tenderness - Back Exam Back exam: Present: normal inspection, full ROM. Absent: CVA tenderness (R), CVA tenderness (L) - Neurological Exam Neurological exam: Present: alert, oriented X3, CN II-XII intact - Psychiatric Psychiatric exam: Present: normal mood, anxious - Skin Skin exam: Present: warm, intact, normal color ED Course Vital Signs 03/19/21 03/19/21 03/19/21 18:08 18:32 19:01 Temperature 98.7 F 98.4 F Pulse Rate 91 H 87 88 Respiratory 18 13 14 Rate Blood Pressure 112/72 Blood Pressure 139/84 130/78 [Right] O2 Sat by Pulse 97 98 98 Oximetry 03/19/21 03/19/21 03/19/21 19:15 19:30 19:31 Temperature 98.5 F Pulse Rate 89 94 H 85 Respiratory 15 15 Rate Blood Pressure 112/72 112/72 Blood Pressure 119/62 [Right] O2 Sat by Pulse 97 97 97 Oximetry 03/19/21 03/19/21 03/19/21 19:45 20:01 20:15 Temperature Pulse Rate 87 87 92 H Respiratory 15 16 12 Rate Blood Pressure 112/72 127/62 127/62 Blood Pressure [Right] O2 Sat by Pulse 96 97 98 Oximetry 03/19/21 03/19/21 03/19/21 20:31 20:45 21:01 Temperature Pulse Rate 79 82 87 Respiratory 17 17 16 Rate Blood Pressure 122/62 122/62 122/62 Blood Pressure [Right] O2 Sat by Pulse 96 98 96 Oximetry 03/19/21 03/19/21 03/19/21 21:15 21:31 21:45 Temperature Pulse Rate 88 88 85 Respiratory 16 22 20 Rate Blood Pressure 122/62 128/62 128/62 Blood Pressure [Right] O2 Sat by Pulse 97 96 96 Oximetry ED Medical Decision Making - Lab Data Result diagrams: 03/19/21 18:21 03/19/21 18:21 - EKG Data -: EKG Interpreted by [place] EKG shows normal: sinus rhythm Rate: normal - Radiology Data Radiology results: report reviewed - Medical Decision Making Ms. Rasmussen is a 75-year-old female with history of COPD, hypertension and dementia. Patient presented to the ER complaining of shortness of breath and difficulty in breathing for the last 5 days. Patient stated that her symptoms started after she received a flu shot at her primary care physician. Patient stated that the next day she started to have shortness of breath and difficulty breathing. Patient denied any fever or chills. She denied cough. No nausea or vomiting. Patient is complaining of pain around her scar wound from her previous cholecystectomy in 2017. Patient remained stable in the ER with stable vital sign. Labs reviewed and is unremarkable. Chest x-ray is negative for acute finding. Patient is allergic to IV dye. She stated that she had serious reaction last time and her throat was closing. VQ scan is ordered. I discussed the patient with Dr. Green, he agreed to admit the patient to medical service for further management. Critical care attestation.: If time is entered above; I have spent that time in minutes in the direct care of this critically ill patient, excluding procedure time. ED Disposition Clinical Impression: Acute chest pain, Shortness of breath Disposition: 02 SHORT TERM [facility]OSPITAL Is pt being admited?: Yes Condition: Stable Instructions: Chest Pain (ED) Referrals: PRIMARY CARE, [Primary Care Provider] - 3-5 Days
[2021-03-19 18:38] LABS: Basophils % (Auto) 0.8 % (0.0-1.8); Eosinophils # (Auto) 0.1 K/mm3 (0.0-0.4); Eosinophils % (Auto) 1.3 % (0.0-4.3); Hematocrit 41.3 % (30.3-42.9); Hemoglobin 14.1 gm/dl (10.1-14.3); Lymphocytes # (Auto) 2.2 K/mm3 (1.2-5.4); Lymphocytes % (Auto) 50.5 % (13.4-35.0); Mean Corpuscular HGB Conc 34 % (30-34); Mean Corpuscular Volume 93 fl (79-97); Monocytes # (Auto) 0.5 K/mm3 (0.0-0.8); Monocytes % (Auto) 12.2 % (0.0-7.3); Platelet Count 218 K/mm3 (140-440); Red Blood Count 4.46 M/mm3 (3.65-5.03)
[2021-03-19 18:53] LABS: BUN/Creatinine Ratio 9; Blood Urea Nitrogen 7 mg/dL (7-17); Calcium 8.9 mg/dL (8.4-10.2); Hemolysis Index 5
[2021-03-19 18:55] LABS: INR 0.81 (0.87-1.13)
[2021-03-19 18:56] LABS: Partial Thromboplastin Time 25.6 Sec. (24.2-36.6)
--- NOTE | 2021-03-19 19:02 | XRay Report ---
XR chest 1V ap INDICATION / CLINICAL INFORMATION: Dyspnea. COMPARISON: 10/21/2020 FINDINGS: SUPPORT DEVICES: None. HEART /PULMONARY VASCULATURE: No significant abnormality. LUNGS / PLEURA: No significant pulmonary or pleural abnormality. No pneumothorax. ADDITIONAL FINDINGS: No significant additional findings. IMPRESSION: 1. No acute findings. Signer Name: Alvin Hermosillo MD Signed: 03/19/2021 6:58 PM Workstation Name: [id number]
[2021-03-19 22:37] LABS: Bacteria,Urine 1+ /HPF (Negative); Bilirubin,Urine NEG (Negative); Blood,Urine NEG (Negative); Color,Urine Straw (Yellow); Protein,Urine <15 mg/dL mg/dL (Negative); Urobilinogen,Urine < 2.0 mg/dL (<2.0); WBC,Urine < 1.0 /HPF (0.0-6.0)
[2021-03-19] MEDS ORDERED: LORazepam 2 MG/ML VIAL IV ONE (23:13)
[2021-03-19] MEDS ORDERED: MAGNESIUM HYDROXIDE (MOM) ORAL LIQD UDC PO PRN (23:33)
[2021-03-19] MEDS ORDERED: traMADol 50 MG TAB PO PRN (23:33)
[2021-03-19] MEDS ORDERED: MORPHINE 4 MG/1 ML INJ IV PRN (23:33)
[2021-03-19] MEDS ORDERED: ONDANSETRON 4 MG/2 ML INJ IV PRN (23:33)
[2021-03-19] MEDS ORDERED: NITROGLYCERIN 0.4 MG TAB SUBL SL PRN (23:33)
[2021-03-19] MEDS ORDERED: ACETAMINOPHEN 325 MG TAB PO PRN ×2 (23:33)
--- NOTE | 2021-03-19 23:43 | History and Physical Report ---
History of Present Illness Date of examination: 03/19/21 Date of admission: 03/19/2021 Chief complaint: Chest pain Shortness of breath History of present illness: 75-year-old female with known history of hypertension, dementia and COPD presenting to the emergency room today complaining of shortness of breath and chest pain for most 5 days. She states that this symptom seems to have started after she received a flu vaccine at her primary care physician's less than a week ago. She denies any fever or chills, she has had cough which is productive of some whitish sputum. She denies any nausea vomiting and no abdominal pain. She denies any hematuria or dysuria. Patient denies any sick contacts and no recent travel. Denies any contact with anyone with COVID-19. She indicates she has been fully vaccinated against COVID-19. Upon arrival in the emergency room she was found to be quite tachypneic. Work-up in the emergency room today EKG, chest x-ray and labs were within normal limits. CT angiogram was to be scheduled however patient is allergic to dye. She is subsequently scheduled for VQ scan. Patient being admitted for chest pain evaluation. Past History Past Medical History: GERD, hypertension, other (Degenerative joint disease) Past Surgical History: hysterectomy, Other (Cervical disc surgery) Social history: smoking (Current daily smoker) Family history: no significant family history Medications and Allergies Allergies Allergy/AdvReac Type Severity Reaction Status Date / Time sulfur [From Sulfur-8] Allergy Severe Swelling Verified 01/10/17 10:16 shellfish derived Allergy Anaphylaxis Verified 03/19/21 18:21 Latex, Natural Rubber AdvReac Severe Swelling Verified 01/10/17 10:16 Home Medications Medication Instructions Recorded Confirmed Last Taken Type Albuterol Sulfate [Albuterol 0.63% 0.63 mg IH TID PRN 10/21/20 10/21/20 Unknown History NEBS] AtorvaSTATin [Lipitor] 20 mg PO QHS 10/21/20 10/21/20 Unknown History Latanoprost 0.005% [Xalatan 0.005%] 1 drop OP QPM 10/21/20 10/21/20 Unknown History Metoprolol [Lopressor TAB] 50 mg PO BID 10/21/20 10/21/20 Unknown History Pantoprazole Sodium 40 mg PO QDAY 10/21/20 10/21/20 Unknown History amLODIPine [Norvasc] 10 mg PO DAILY 10/21/20 10/21/20 Unknown History Active Meds: Active Medications Acetaminophen (Acetaminophen 325 Mg Tab) 650 mg PO Q4H PRN PRN Reason: Pain MILD(1-3)/Fever >100.5/TAMAYO Acetaminophen (Acetaminophen 325 Mg Tab) 650 mg PO Q6H PRN PRN Reason: Pain, Mild (1-3) Aspirin (Aspirin Ec 325 Mg Tab) 325 mg PO QDAY [facility] Heparin Sodium (Porcine) (Heparin 5,000 Unit/1 Ml Vial) 5,000 unit SUB-Q Q8HR [facility] Magnesium Hydroxide (Magnesium Hydroxide (Mom) Oral Liqd Udc) 30 ml PO Q4H PRN PRN Reason: Constipation Morphine Sulfate (Morphine 2 Mg/1 Ml Inj) 2 mg IV Q4H PRN PRN Reason: Pain, Moderate (4-6) Morphine Sulfate (Morphine 4 Mg/1 Ml Inj) 4 mg IV Q4H PRN PRN Reason: Pain , Severe (7-10) Nitroglycerin (Nitroglycerin 0.4 Mg Tab Subl) 0.4 mg SL Q5M PRN PRN Reason: Chest Pain Ondansetron HCl (Ondansetron 4 Mg/2 Ml Inj) 4 mg IV Q8H PRN PRN Reason: Nausea And Vomiting Sodium Chloride (Sodium Chloride 0.9% 10 Ml Flush Syringe) 10 ml IV BID SUSAN Sodium Chloride (Sodium Chloride 0.9% 10 Ml Flush Syringe) 10 ml IV PRN PRN PRN Reason: LINE FLUSH Sodium Chloride (Sodium Chloride 0.9% 10 Ml Flush Syringe) 10 ml IV PRN PRN PRN Reason: LINE FLUSH Tramadol HCl (Tramadol 50 Mg Tab) 50 mg PO Q6H PRN PRN Reason: Pain, Moderate (4-6) Review of Systems Constitutional: no fever, no chills Ears, nose, mouth and throat: no nasal congestion, no sore throat Cardiovascular: chest pain, no palpitations Respiratory: cough, cough with sputum, shortness of breath Gastrointestinal: no abdominal pain, no nausea, no vomiting, no diarrhea Genitourinary Female: no pelvic pain, no flank pain, no dysuria, no hematuria Musculoskeletal: no neck pain, no low back pain Integumentary: no rash, no pruritis Neurological: no headaches, no confusion Psychiatric: no anxiety, no depression Endocrine: no polyphagia, no polydipsia, no polyuria, no nocturia Exam - Constitutional Vitals: Temp Pulse Resp BP Pulse Ox 98.5 F 85 20 128/62 96 03/19/21 19:30 03/19/21 21:45 03/19/21 21:45 03/19/21 21:45 03/19/21 21:45 General appearance: Present: no acute distress, well-nourished - EENT Eyes: Present: PERRL, EOM intact. Absent: scleral icterus ENT: hearing intact, clear oral mucosa, dentition normal - Neck Neck: Present: supple, normal ROM - Respiratory Respiratory effort: normal Respiratory: bilateral: rales (Few rales in the bases) - Cardiovascular Rhythm: regular Heart Sounds: Present: S1 & S2. Absent: gallop, systolic murmur, diastolic murmur, rub, click - Extremities Extremities: no ischemia, pulses intact, pulses symmetrical, No edema, normal temperature, Full ROM Peripheral Pulses: within normal limits - Abdominal General gastrointestinal: Present: soft, non-tender, non-distended, normal bowel sounds. Absent: mass - Integumentary Integumentary: Present: clear, warm, dry. Absent: rash - Musculoskeletal Musculoskeletal: strength equal bilaterally - Psychiatric Psychiatric: appropriate mood/affect, intact judgment & insight, memory intact, cooperative - Neurologic Neurologic: CNII-XII intact, no focal deficits, moves all extremities HEART Score - HEART Score History: Moderately suspicious EKG: Normal Age: > 65 Risk factors: 1-2 risk factors Troponin: Troponin T < 0.010 ng/mL (0.00-0.029) 03/19/21 21:42 Troponin: < normal limit HEART Score: 4 Results - Labs CBC & Chem 7: 03/20/21 02:50 03/20/21 01:43 Labs: Abnormal lab results 03/19/21 03/19/21 03/19/21 Range/Units 18:21 18:21 18:21 WBC 4.4 L (4.5-11.0) K/mm3 Lymph % (Auto) 50.5 H (13.4-35.0) % [place] % (Auto) 12.2 H (0.0-7.3) % Seg Neutrophils % 35.2 L (40.0-70.0) % Seg Neutrophils # 1.5 L (1.8-7.7) K/mm3 PT 11.7 L (12.2-14.9) Sec. INR 0.81 L (0.87-1.13) Glucose 123 H (65-100) mg/dL Urine pH (5.0-7.0) 03/19/21 Range/Units 21:53 WBC (4.5-11.0) K/mm3 Lymph % (Auto) (13.4-35.0) % [place] % (Auto) (0.0-7.3) % Seg Neutrophils % (40.0-70.0) % Seg Neutrophils # (1.8-7.7) K/mm3 PT (12.2-14.9) Sec. INR (0.87-1.13) Glucose (65-100) mg/dL Urine pH 8.0 H (5.0-7.0) Assessment and Plan - Patient Problems (1) Chest pain, rule out acute myocardial infarction Current Visit: No Status: Acute Plan to address problem: Patient admitted and placed on telemetry. We will check serial cardiac enzymes and also monitor EKG. VQ scan has been scheduled for possible pulmonary embolism. Will be placed on daily aspirin, sublingual nitroglycerin and IV morphine as needed for chest pain. We will request cardiology evaluation. (2) Shortness of breath Current Visit: Yes Status: Acute Plan to address problem: Possibly secondary to underlying bronchitis versus pneumonia. Placed on empiric IV antibiotics. (3) DVT prophylaxis Current Visit: Yes Status: Acute Plan to address problem: Patient placed on subcutaneous heparin. (4) Full code status Current Visit: Yes Status: Acute Plan to address problem: Patient is full code.
[2021-03-20 02:06] LABS: Basophils % (Auto) 0.8 % (0.0-1.8); Eosinophils # (Auto) 0.1 K/mm3 (0.0-0.4); Eosinophils % (Auto) 1.5 % (0.0-4.3); Hematocrit 41.6 % (30.3-42.9); Hemoglobin 14.3 gm/dl (10.1-14.3); Lymphocytes # (Auto) 2.4 K/mm3 (1.2-5.4); Lymphocytes % (Auto) 48.9 % (13.4-35.0); Mean Corpuscular HGB Conc 34 % (30-34); Mean Corpuscular Volume 93 fl (79-97); Monocytes # (Auto) 0.6 K/mm3 (0.0-0.8); Monocytes % (Auto) 11.1 % (0.0-7.3); Platelet Count 208 K/mm3 (140-440); Red Blood Count 4.47 M/mm3 (3.65-5.03); Red Cell Distribution Width 14.9 % (13.2-15.2)
[2021-03-20 02:22] LABS: Blood Urea Nitrogen 6 mg/dL (7-17); Calcium 9.4 mg/dL (8.4-10.2); Hemolysis Index 5
[2021-03-20 02:24] LABS: BUN/Creatinine Ratio 9
[2021-03-20 03:57] LABS: Basophils % (Auto) 0.4 % (0.0-1.8); Eosinophils # (Auto) 0.1 K/mm3 (0.0-0.4); Eosinophils % (Auto) 1.7 % (0.0-4.3); Hemoglobin 14.1 gm/dl (10.1-14.3); Lymphocytes # (Auto) 2.5 K/mm3 (1.2-5.4); Lymphocytes % (Auto) 47.9 % (13.4-35.0); Mean Corpuscular HGB Conc 35 % (30-34); Mean Corpuscular Volume 91 fl (79-97); Monocytes # (Auto) 0.6 K/mm3 (0.0-0.8); Platelet Count 213 K/mm3 (140-440); Red Blood Count 4.39 M/mm3 (3.65-5.03)
[2021-03-20 04:05] LABS: INR 0.9 (0.87-1.13)
[2021-03-20 04:08] LABS: Blood Urea Nitrogen 5 mg/dL (7-17); Calcium 9.1 mg/dL (8.4-10.2); Hemolysis Index 1
[2021-03-20 04:10] LABS: BUN/Creatinine Ratio 7
[2021-03-20] MEDS: HEPARIN 5,000 UNIT/1 ML VIAL SUB-Q SCH ×3 (05:50→22:29)
[2021-03-20] MEDS: MORPHINE 2 MG/1 ML INJ IV PRN ×2 (10:13→20:33)
[2021-03-20] MEDS: ASPIRIN EC 325 MG TAB PO SCH (10:20)
--- NOTE | 2021-03-20 11:40 | Consultation ---
History of Present Illness Consult date: 03/20/21 Requesting physician: ANITA RASMUSSEN Consult reason: chest pain History of present illness: 75-year-old female has been vaccinated has hypertension is a smoker has been multiple emergency room's. Complaining of abdominal pain with associated shortness of breath no chest pain. Negative troponin and negative BNP. Patient symptoms relieved with GI cocktail. Patient denies any fever chills nausea vomiting or syncope. Patient states having a negative ischemic work-up several years ago. Past History Past Medical History: GERD, hypertension, other (Degenerative joint disease) Past Surgical History: hysterectomy, Other (Cervical disc surgery) Social history: smoking (Current daily smoker) Family history: no significant family history Medications and Allergies Allergies Allergy/AdvReac Type Severity Reaction Status Date / Time sulfur [From Sulfur-8] Allergy Severe Swelling Verified 01/10/17 10:16 shellfish derived Allergy Anaphylaxis Verified 03/19/21 18:21 Latex, Natural Rubber AdvReac Severe Swelling Verified 01/10/17 10:16 Home Medications Medication Instructions Recorded Confirmed Last Taken Type Albuterol Sulfate [Albuterol 0.63% 0.63 mg IH TID PRN 10/21/20 10/21/20 Unknown History NEBS] AtorvaSTATin [Lipitor] 20 mg PO QHS 10/21/20 10/21/20 Unknown History Latanoprost 0.005% [Xalatan 0.005%] 1 drop OP QPM 10/21/20 10/21/20 Unknown History Metoprolol [Lopressor TAB] 50 mg PO BID 10/21/20 10/21/20 Unknown History Pantoprazole Sodium 40 mg PO QDAY 10/21/20 10/21/20 Unknown History amLODIPine [Norvasc] 10 mg PO DAILY 10/21/20 10/21/20 Unknown History Active Meds: Active Medications Acetaminophen (Acetaminophen 325 Mg Tab) 650 mg PO Q4H PRN PRN Reason: Pain MILD(1-3)/Fever >100.5/TAMAYO Aspirin (Aspirin Ec 325 Mg Tab) 325 mg PO QDAY [facility] Last Admin: 03/20/21 10:20 Dose: Not Given Documented by: Heparin Sodium (Porcine) (Heparin 5,000 Unit/1 Ml Vial) 5,000 unit SUB-Q Q8HR [facility] Last Admin: 03/20/21 05:50 Dose: 5,000 unit Documented by: Magnesium Hydroxide (Magnesium Hydroxide (Mom) Oral Liqd Udc) 30 ml PO Q4H PRN PRN Reason: Constipation Morphine Sulfate (Morphine 2 Mg/1 Ml Inj) 2 mg IV Q4H PRN PRN Reason: Pain, Moderate (4-6) Last Admin: 03/20/21 10:13 Dose: 2 mg Documented by: Morphine Sulfate (Morphine 4 Mg/1 Ml Inj) 4 mg IV Q4H PRN PRN Reason: Pain , Severe (7-10) Nitroglycerin (Nitroglycerin 0.4 Mg Tab Subl) 0.4 mg SL Q5M PRN PRN Reason: Chest Pain Ondansetron HCl (Ondansetron 4 Mg/2 Ml Inj) 4 mg IV Q8H PRN PRN Reason: Nausea And Vomiting Sodium Chloride (Sodium Chloride 0.9% 10 Ml Flush Syringe) 10 ml IV BID SUSAN Last Admin: 03/20/21 10:20 Dose: 10 ml Documented by: Sodium Chloride (Sodium Chloride 0.9% 10 Ml Flush Syringe) 10 ml IV PRN PRN PRN Reason: LINE FLUSH Tramadol HCl (Tramadol 50 Mg Tab) 50 mg PO Q6H PRN PRN Reason: Pain, Moderate (4-6) Review of Systems All systems: negative (As per the HPI) Physical Examination Vital Signs Temp Pulse Resp BP Pulse Ox 98.7 F 91 H 18 139/84 97 03/19/21 18:08 03/19/21 18:08 03/19/21 18:08 03/19/21 18:08 03/19/21 18:08 General appearance: no acute distress, well-nourished HEENT: Positive: PERRL, Mucus Membranes Moist Neck: Positive: neck supple, trachea midline Cardiac: Positive: Reg Rate and Rhythm, S1/S2. Negative: Audible Murmur Lungs: Positive: clear to auscultation, Normal Breath Sounds Neuro: Positive: Grossly Intact Abdomen: Positive: Soft, Active Bowel Sounds, Tender. Negative: Distended Female genitourinary: deferred Skin: Positive: Clear Incision: Cardiac Cath Site Musculoskeletal: No Pain, Normal Range of Motion Extremities: Present: normal. Absent: edema Results 03/20/21 02:50 03/20/21 02:50 Coagulation 03/19/21 03/20/21 Range/Units 18:21 02:50 PT 11.7 L 12.7 (12.2-14.9) Sec. INR 0.81 L 0.90 (0.87-1.13) APTT 25.6 (24.2-36.6) Sec. CBC 03/19/21 03/20/21 03/20/21 Range/Units 18:21 01:43 02:50 WBC 4.4 L 5.0 5.3 (4.5-11.0) K/mm3 RBC 4.46 4.47 4.39 (3.65-5.03) M/mm3 Hgb 14.1 14.3 14.1 (10.1-14.3) gm/dl Hct 41.3 41.6 40.0 (30.3-42.9) % Plt Count 218 208 213 (140-440) K/mm3 Lymph # (Auto) 2.2 2.4 2.5 (1.2-5.4) K/mm3 [place] # (Auto) 0.5 0.6 0.6 (0.0-0.8) K/mm3 Eos # (Auto) 0.1 0.1 0.1 (0.0-0.4) K/mm3 Baso # (Auto) 0.0 0.0 0.0 (0.0-0.1) K/mm3 Comprehensive Metabolic Panel 03/19/21 03/20/21 03/20/21 Range/Units 18:21 01:43 02:50 Sodium 139 136 L 139 (137-145) mmol/L Potassium 3.9 3.6 3.5 L (3.6-5.0) mmol/L Chloride 101.7 100.7 102.9 (98-107) mmol/L Carbon Dioxide 23 22 20 L (22-30) mmol/L BUN 7 6 L 5 L (7-17) mg/dL Creatinine 0.8 0.7 0.7 (0.6-1.2) mg/dL Glucose 123 H 144 H 115 H (65-100) mg/dL Calcium 8.9 9.4 9.1 (8.4-10.2) mg/dL EKG interpretations - Telemetry EKG Rhythm: Sinus Rhythm (Normal sinus rhythm nonspecific ST-T) Assessment and Plan 75-year-old female smoker hypertension atypical chest pain and shortness of breath is reproducible with palpation appears to be GI in nature in view of negative troponin negative BNP unlikely be heart failure ischemic in nature. In view of negative's ischemic evaluation several years ago continue risk factor modifications for GI. Patient states having multiple scopes. May be discharged from a cardiovascular point of view
--- NOTE | 2021-03-20 12:30 | Discharge Summary ---
Providers - Providers Date of Admission: 03/19/21 23:33 Date of discharge: 03/20/21 Attending physician: ANITA RASMUSSEN MD 03/19/21 Consult to Cardiac Rehabilitation [CONS] Routine Reason For Exam: Phase I 03/19/21 23:34 Consult to Cardiology [CONS] Routine Consulting Provider: REEMA ALCANTAR Reason For Exam: chest pain Primary care physician: [facility] Hospitalization Reason for admission: Abdominal pain Condition: Stable Hospital course: Patient 75-year-old female with history of hypertension, COPD and chronic abdominal pain who presented to the ED with complaints of abdominal pain. She was originally admitted for shortness of breath and chest pain. Patient clarified, that her chief complaint was epigastric pain that has been persistent since October 2020. She reports having a cholecystectomy and having pain since the procedure. She described the pain as feeling as if she had and hold in her stomach. She has followed up with gastroenterology, has had multiple colonoscopies and EGDs, and was recently seen in [facility] and had a CT of her abdomen and pelvis done which was negative. VQ scan was negative for PE. Patient remained chest pain free and was evaluated cardiology. Patient was discharged with instructions to follow-up with primary care. Disposition: [address] [place] [address] Final Discharge Diagnosis (Prints w/discharge instructions): Chronic abdominal pain Time spent for discharge: 20 minutes Core Measure Documentation - Palliative Care Palliative Care/ Comfort Measures: Not Applicable - Core Measures Any of the following diagnoses?: none Exam - Physical Exam Narrative exam: GENERAL: Well-developed well-nourished. Sitting on the side of the bed in no acute distress. HEENT: Normocephalic. Atraumatic. NECK: Supple. CHEST/LUNGS: CTAB on room air HEART/CARDIOVASCULAR: RRR. No murmur, rubs or gallops appreciated. ABDOMEN: +BS. NT/ND. NEURO: No focal motor deficit. Follows all commands. MUSCULOSKELETAL: No joint effusion EXTREMITIES: No cyanosis, clubbing or edema. PSYCH: Cooperative. - Constitutional Vitals: Temp Pulse Resp BP Pulse Ox 98.5 F 80 22 134/80 100 03/19/21 19:30 03/20/21 12:01 03/20/21 12:01 03/20/21 12:01 03/20/21 12:01 Plan Assessment: Examination negative for chest pain. Pain more epigastric in nature. Patient reports chronic pain and was recently seen at [facility] where CT abdomen pelvis was negative. Patient advised to follow-up with GI and primary care for chronic pain. Follow up with: PRIMARY CARE, [Primary Care Provider] - 3-5 Days
--- NOTE | 2021-03-20 13:27 | Nuclear Medicine Report ---
NUCLEAR MEDICINE PERFUSION LUNG SCAN INDICATION / CLINICAL INFORMATION: CHEST PAIN,SOB,. TECHNIQUE: 5.1 mCi of Tc-99m MAA were given by IV. COMPARISON: Chest radiograph dated 03/19/2021. FINDINGS: PERFUSION: No significant perfusion defects. ADDITIONAL FINDINGS: None. IMPRESSION: 1. Low probability for pulmonary embolism. Signer Name: Alvin Hermosillo MD Signed: 03/20/2021 1:22 PM Workstation Name: [id number]
[2021-03-21 04:23] VITALS: BP 118/74
[2021-03-21] MEDS: HEPARIN 5,000 UNIT/1 ML VIAL SUB-Q SCH (06:04)
[2021-03-21] MEDS: ASPIRIN EC 325 MG TAB PO SCH (10:33)
--- NOTE | 2021-03-22 11:12 | Electrocardiograph Report ---
[facility] Test Date: 2021-03-19 Test Time: 18:17:49 Pat Name: NATHANAEL DENNEY Department: Room: A475 Gender: F Foundry Hand: DARON : 1945 Requested By: SALLY PEREZ Order Number: [id number] Reading MD: Cecile Lagunas Measurements Intervals [place] Rate: 83 P: 59 [place]: 139 QRS: 69 QRSD: 89 T: 39 QT: 386 QTc: 455 Interpretive Statements Sinus rhythm T wave abnormality, consider anterior ischemia Compared to ECG 10/21/2020 09:41:08 No significant change Electronically Signed On 03-22-2021 11:11:50 EDT by Cecile Lgaunas
--- NOTE | 2021-03-22 11:18 | Electrocardiograph Report ---
[facility] Test Date: 2021-03-20 Test Time: 11:25:05 Pat Name: NATHANAEL DENNEY Department: Room: A475 Gender: F Systems Software Developer: MARIANA : 1945 Requested By: EMILY GONZALEZ Order Number: [id number] Reading MD: Cecile Lagunas Measurements Intervals [place] Rate: 82 P: 48 [place]: 143 QRS: 42 QRSD: 94 T: -38 QT: 393 QTc: 461 Interpretive Statements Sinus rhythm Abnrm T, consider ischemia, anterolateral lds Compared to ECG 03/19/2021 18:17:49 No significant change Electronically Signed On 03-22-2021 11:18:09 EDT by Cecile Lagunas
== END 2021-03-21 11:42 | disposition home or self-care (01) ==
LOC: ED 17:57 → 4A 23:33
PROVIDERS: ADMIT Internal Medicine Geriatric Medicine; ATTEND Student in an Organized Health Care Education/Training Program
DX: R07.89 Other chest pain (principal); R06.02 Shortness of breath; I10 Essential (primary) hypertension; K21.9 Gastro-esophageal reflux disease without esophagitis; M47.892 Other spondylosis, cervical region; F17.210 Nicotine dependence, cigarettes, uncomplicated; Z90.710 Acquired absence of both cervix and uterus; Z79.899 Other long term (current) drug therapy; Z98.890 Other specified postprocedural states; Z79.82 Long term (current) use of aspirin
CPT/HCPCS: 36415; 71045; 78580; 80048; 81001; 82140; 83690; 83880; 84484; 85025; 85610; 85730; 87040; 93005; 93306; 96365; 96372; 96375; 96376; 99285; A9540; G0378; J1644; J1956; J2060; J2270